=== PATIENT | male | born 1950 | race Caucasian/White ===

== ENCOUNTER 2023-11-11 09:06 | Outpatient (CLI) | payer MEDICARE, BC ==
[2023-11-11 11:10] LABS: #Eosinphils 0.2 10x3/uL (0.0-0.5); #Monocytes 0.5 10x3/uL (0.0-1.1); #Neutrophils 4.5 10x3/uL (1.5-8.4); %Basophils 0.3 % (0.0-2.0); %Eosinophils 2.3 % (0.0-6.0); %Lymphocytes 25.7 % (18.0-47.0); %Monocytes 6.7 % (0.0-10.0); %Neutrophils 64.7 % (40.0-75.0); Hematocrit 47.4 % (38.8-50.0); Hemoglobin 16.3 g/dL (13.5-17.5); Mean Corpuscular HGB CONC 34.4 g/dL (32.0-36.0); Mean Corpuscular Volume 90.1 fl (81.2-95.1); Mean Platelet Volume 10.4 fl (7.4-10.4); Platelet Count 225 10x3/uL (150-450); RBC Distribution Width 13.2 % (11.5-14.5); Red Blood Cell (RBC) Count 5.26 10x6/uL (4.32-5.72)
[2023-11-11 12:09] LABS: ALT (SGPT) 25 U/L (8-55); AST (SGOT) 27 U/L (5-34); Albumin 4.3 g/dL (3.4-4.8); Alkaline Phosphatase 83 U/L (40-110); Anion Gap 14 mmol/L (10-20); BUN (Urea Nitrogen) 15 mg/dL (8.4-25.7); Bilirubin, Total 2.9 mg/dL (0.2-1.2); Calc. Creatinine Clearance 0 mL/min (70-130); Calcium 9.6 mg/dL (7.8-10.44); Carbon Dioxide 29 mmol/L (23-31); Chloride 104 mmol/L (98-107); Estimated GFR 91; Globulin 2.8 g/dL (2.4-3.5); Glucose 90 mg/dL (83-110); Potassium 4.7 mmol/L (3.5-5.1); Protein, Total 7.1 g/dL (5.8-8.1); Sodium 142 mmol/L (136-145)
== END 2023-11-11 09:07 | disposition home or self-care (01) ==
LOC: LABBT 09:06
PROVIDERS: ATTEND Specialist
DX: Z01.818 Encounter for other preprocedural examination (principal); K81.9 Cholecystitis, unspecified
CPT/HCPCS: 71046; 80053; 85025

== ENCOUNTER 2023-11-18 07:10 | Inpatient (IN) | payer MEDICARE, BC ==
[2023-11-11 09:55] VITALS: BMI 25.7
[2023-11-18] MEDS ORDERED: Ketorolac Tromethamine 30 MG (1 mL) VIAL ONE ×2 (08:28→15:10)
[2023-11-18] MEDS ORDERED: Acetaminophen 500 MG TAB ONE (08:28)
[2023-11-18] MEDS ORDERED: Midazolam HCl 2 mg/2 ml Vial ONE (09:48)
[2023-11-18] MEDS ORDERED: EPINEPHrine 1 MG/ML VIAL ONE (09:59)
[2023-11-18] MEDS ORDERED: Bupivacaine 0.25% HCL 30 ML VIAL ONE (09:59)
[2023-11-18] MEDS ORDERED: Iopamidol 15 ML ONE (09:59)
[2023-11-18] MEDS ORDERED: Lidocaine 1% PF 5 ML VIAL ONE (10:06)
[2023-11-18] MEDS ORDERED: PROPOFOL 20 ML ONE (10:06)
[2023-11-18] MEDS ORDERED: fentaNYL PF 100 MCG/2 ML SYRINGE ONE (10:06)
[2023-11-18] MEDS ORDERED: Rocuronium Bromide 10 MG/ML (10ML VIAL) ONE (10:06)
[2023-11-18] MEDS ORDERED: CEFAZOLIN 2 GM VIAL ONE (10:20)
[2023-11-18] MEDS ORDERED: Sodium Chloride 0.9% 100 ML ONE (10:21)
[2023-11-18] MEDS ORDERED: PHENYLEPHRINE-NS 100 MCG/ML 10 ML SYRINGE ONE (10:53)
[2023-11-18] MEDS ORDERED: ePHEDrine Sulfate 50 MG/10 ML VIAL ONE (10:57)
[2023-11-18] MEDS ORDERED: Ondansetron PF 4 MG/2 ML Vial ONE (12:18)
[2023-11-18] MEDS ORDERED: SUGAMMADEX SODIUM 200 MG/2 ML VIAL ONE (12:23)
[2023-11-18] MEDS ORDERED: Ondansetron HCl/PF 4 MG/2 ML Vial IVP PRN (12:39)
[2023-11-18] MEDS ORDERED: Promethazine HCl 25 MG/ML VIAL IM PRN ×2 (12:39→12:50)
[2023-11-18] MEDS ORDERED: Morphine 4 MG/ML VIAL SLOW IVP PRN (12:50)
[2023-11-18] MEDS ORDERED: Ipratropium/Albuterol 3 ML NEB NEB PRN (12:50)
[2023-11-18] MEDS ORDERED: Morphine 2 MG/ML VIAL SLOW IVP PRN (12:50)
[2023-11-18] MEDS ORDERED: Mag-Al 1200 mg/1200 mg/30 ML UDCUP PO PRN (12:50)
[2023-11-18] MEDS ORDERED: HYDROcodone/Acetaminophen 10/325 mg Tablet PO PRN (12:50)
[2023-11-18] MEDS ORDERED: Dextrose 50% Abboject 50 ML SYRINGE SLOW IVP PRN (12:50)
[2023-11-18] MEDS ORDERED: Glucagon 1 MG/ML KIT IM PRN (12:50)
[2023-11-18] MEDS ORDERED: Ondansetron PF 4 MG/2 ML Vial IVP PRN (12:50)
[2023-11-18] MEDS ORDERED: Dextrose 5% in Water 1,000 ML IV PRN (12:50)
[2023-11-18] MEDS ORDERED: hydrALAZINE 20 MG/ML VIAL SLOW IVP PRN (12:50)
[2023-11-18] MEDS ORDERED: Calcium Carbonate 500 MG ChewTAB PO PRN (12:50)
[2023-11-18] MEDS: Ketorolac Tromethamine 30 MG (1 mL) VIAL IVP SCH ×2 (15:12→20:27)
[2023-11-18] MEDS: D5 1/2 NS w/20 mEq KCL 1,000 ML IV SCH (15:40)
[2023-11-18] MEDS: cefOXitin 2 GM in Sodium Chloride 0.9% 100 ML IVPB SCH (17:07)
[2023-11-18] MEDS: ALPRAZolam 0.5 MG TAB PO SCH (20:28)
[2023-11-18] MEDS: Famotidine/PF 20 mg/2ml Vial SLOW IVP SCH (20:28)
[2023-11-18] MEDS: Famotidine 20 MG TAB PO SCH (20:28)
[2023-11-19] MEDS: D5 1/2 NS w/20 mEq KCL 1,000 ML IV SCH ×3 (02:33→20:01)
[2023-11-19] MEDS: Ketorolac Tromethamine 30 MG (1 mL) VIAL IVP SCH ×4 (02:34→20:01)
[2023-11-19] MEDS: cefOXitin 2 GM in Sodium Chloride 0.9% 100 ML IVPB SCH ×3 (02:34→17:34)
[2023-11-19 05:08] LABS: #Eosinphils 0.1 thou/uL (0.0-0.7); #Monocytes 0.4 thou/uL (0.11-0.59); #Neutrophils 4.2 thou/uL (1.40-6.50); %Basophils 0.2 % (0.0-1.0); %Lymphocytes 21.4 % (21.0-51.0); %Monocytes 6.4 % (0.0-10.0); %Neutrophils 70.8 % (42.0-75.0); Hematocrit 38.7 % (42.0-52.0); Hemoglobin 13.4 g/dL (14.0-18.0); Mean Corpuscular HGB CONC 34.6 g/dL (32.0-36.0); Mean Corpuscular Hemoglobin 31.5 pg (27.0-31.0); Mean Corpuscular Volume 90.8 fl (78.0-98.0); Mean Platelet Volume 10.8 fL (7.4-10.4); Platelet Count 125 10x3/uL (130-400); RBC Distribution Width 13.5 % (11.5-14.5); Red Blood Cell (RBC) Count 4.26 mill/uL (4.70-6.10)
[2023-11-19 05:38] LABS: ALT (SGPT) 35 U/L (8-55); AST (SGOT) 45 U/L (5-34); Albumin 3.3 g/dL (3.4-4.8); Alkaline Phosphatase 69 U/L (40-110); Anion Gap 10 mmol/L (10-20); BUN (Urea Nitrogen) 14 mg/dL (8.4-25.7); Bilirubin, Total 3.2 mg/dL (0.2-1.2); Calc. Creatinine Clearance 81 mL/min (70-130); Calcium 8.2 mg/dL (7.8-10.44); Carbon Dioxide 25 mmol/L (23-31); Chloride 107 mmol/L (98-107); Estimated GFR 78; Globulin 2.4 g/dL (2.4-3.5); Glucose 90 mg/dL (83-110); Protein, Total 5.7 g/dL (5.8-8.1); Sodium 138 mmol/L (136-145)
[2023-11-19] MEDS: Famotidine/PF 20 mg/2ml Vial SLOW IVP SCH (08:15)
[2023-11-19] MEDS: Famotidine 20 MG TAB PO SCH ×2 (08:22→20:01)
[2023-11-19] MEDS: Furosemide 40 MG TAB PO SCH (08:22)
[2023-11-19] MEDS: NIFEdipine XL 30 MG ER.TAB PO SCH (08:22)
[2023-11-19 13:49] LABS: ALT (SGPT) 37 U/L (8-55); AST (SGOT) 42 U/L (5-34); Albumin 3.5 g/dL (3.4-4.8); Alkaline Phosphatase 74 U/L (40-110); Bilirubin, Direct 0.3 mg/dL (0.1-0.3); Bilirubin, Total 4.2 mg/dL (0.2-1.2); Protein, Total 6.2 g/dL (5.8-8.1)
[2023-11-19] MEDS ORDERED: Lorazepam 0.5 MG TAB PO SCH (15:30)
[2023-11-19] MEDS: ALPRAZolam 0.5 MG TAB PO SCH (20:01)
[2023-11-20] MEDS: Ketorolac Tromethamine 30 MG (1 mL) VIAL IVP SCH ×2 (02:11→08:23)
[2023-11-20] MEDS: cefOXitin 2 GM in Sodium Chloride 0.9% 100 ML IVPB SCH ×2 (02:11→09:37)
[2023-11-20 05:21] LABS: #Eosinphils 0.1 thou/uL (0.0-0.7); #Monocytes 0.6 thou/uL (0.11-0.59); #Neutrophils 3.6 thou/uL (1.40-6.50); %Basophils 0.4 % (0.0-1.0); %Eosinophils 2.4 % (0.0-10.0); %Lymphocytes 21.6 % (21.0-51.0); %Monocytes 10.4 % (0.0-10.0); Hematocrit 36.8 % (42.0-52.0); Mean Corpuscular HGB CONC 35.3 g/dL (32.0-36.0); Mean Corpuscular Hemoglobin 31.6 pg (27.0-31.0); Mean Corpuscular Volume 89.5 fl (78.0-98.0); Platelet Count 111 10x3/uL (130-400); RBC Distribution Width 13.3 % (11.5-14.5); Red Blood Cell (RBC) Count 4.11 mill/uL (4.70-6.10); White Blood Cell (WBC) Count 5.5 10x3/uL (4.8-10.8)
[2023-11-20 05:48] LABS: ALT (SGPT) 28 U/L (8-55); AST (SGOT) 28 U/L (5-34); Albumin 3.2 g/dL (3.4-4.8); Alkaline Phosphatase 65 U/L (40-110); Anion Gap 8 mmol/L (10-20); BUN (Urea Nitrogen) 11 mg/dL (8.4-25.7); Bilirubin, Total 3.9 mg/dL (0.2-1.2); Calc. Creatinine Clearance 102 mL/min (70-130); Calcium 8.1 mg/dL (7.8-10.44); Carbon Dioxide 27 mmol/L (23-31); Chloride 107 mmol/L (98-107); Estimated GFR 92; Globulin 2.5 g/dL (2.4-3.5); Glucose 102 mg/dL (83-110); Potassium 3.9 mmol/L (3.5-5.1); Protein, Total 5.7 g/dL (5.8-8.1); Sodium 138 mmol/L (136-145)
[2023-11-20 07:21] VITALS: BP 124/73; TEMP 97.5
[2023-11-20] MEDS: Famotidine 20 MG TAB PO SCH (08:23)
[2023-11-20] MEDS: NIFEdipine XL 30 MG ER.TAB PO SCH (08:23)
[2023-11-20] MEDS: Furosemide 40 MG TAB PO SCH (08:24)
== END 2023-11-20 10:40 | disposition home or self-care (01) | DRG 418 ==
LOC: SDC 07:10 → SURG A 12:50
PROVIDERS: ADMIT Specialist; ATTEND Specialist
PROC: 0FT44ZZ Resection of Gallbladder, Percutaneous Endoscopic Approach (ICD-10-PCS; principal; 2023-11-18)
PROC: 0F9 Hepatobiliary System and Pancreas, Drainage (ICD-10-PCS; 2023-11-18)
DX: K80.46 Calculus of bile duct with acute and chronic cholecystitis without obstruction (principal); I48.20 Chronic atrial fibrillation, unspecified; I10 Essential (primary) hypertension; M19.90 Unspecified osteoarthritis, unspecified site; F41.9 Anxiety disorder, unspecified; Z98.890 Other specified postprocedural states; Z90.49 Acquired absence of other specified parts of digestive tract; Z79.01 Long term (current) use of anticoagulants
CPT/HCPCS: 36415; 74181; 80053; 85025; 88304; C1889; J0171; J0665; J0694; J1885; J2250; J2405; J2704; J3480; J3490; Q9967